=== PATIENT | female | born 1965 | race Caucasian/White ===

== ENCOUNTER 2016-06-10 14:50 | Emergency (ER) | payer MEDICARE ==
[2016-06-10] MEDS ORDERED: HYDROmorphone HCL 1 MG/ML DISP.SYRIN IM ONE (16:02)
[2016-06-10] MEDS ORDERED: ONDANSETRON 4 MG TAB.RAPDIS PO ONE (16:02)
[2016-06-10] MEDS ORDERED: ONDANSETRON 4 MG TAB.RAPDIS ONE (16:03)
[2016-06-10] MEDS ORDERED: HYDROmorphone HCL 1 MG/ML DISP.SYRIN ONE (16:03)
[2016-06-10] MEDS ORDERED: NORMAL SALINE 1,000 ML IV ONE (16:52)
[2016-06-10] MEDS ORDERED: KETOROLAC TROMETHAMINE 30 MG/ML VIAL IV ONE (16:52)
--- NOTE | 2016-06-10 17:01 | ERNOTE ---
ER Female HPI Date of Service: 06/10/16 Stated Complaint: KIDNEY STONE Time Seen by Provider: 06/10/16 16:49 Source: patient Exam Limitations: no limitations Allergies/Adverse Reactions: Allergies Penicillins Allergy (Verified 06/10/16 15:58) Anaphylaxis Home Medications: HOME MEDICATIONS Albuterol Sulfate [Ventolin HFA] 1 puff IH DAILY 06/10/16 [Last Taken Unknown] Citalopram Hydrobromide [Celexa] 20 mg PO DAILY 06/10/16 [Last Taken Unknown] Levofloxacin [Levaquin] 750 mg PO DAILY #10 tab 06/10/16 [Last Taken Unknown] Naproxen [Naprosyn] 500 mg PO BID PRN #60 tab 06/10/16 [Last Taken Unknown] Trazodone HCl [Oleptro ER] 100 mg PO HS 06/10/16 [Last Taken Unknown] metroNIDAZOLE [Flagyl] 500 mg PO QID #40 tab 06/10/16 [Last Taken Unknown] - History of Present Illness Narrative: Pt. comes in with c/o R flank pain for two days. Pt. also states that she has chest pain and SOB that has increased from her baseline recently. Pt. has a hx of emphasema and has been using her inhaler more recently. Pt. has had nausea and vomiting but denies any fevers. Pt. denies any prehospital treatment, dysuria, hematuria, recent injury, alleviating factors or aggravating factors. Review of Systems - Review of Systems Constitutional: Present: weakness, fatigue, malaise. Absent: recent illness, fever, chills EYE: Present: no symptoms reported ENT: Present: no symptoms reported Respiratory: Present: shortness of breath, cough, wheezing Cardiology: Present: chest pain. Absent: palpitations, syncope, edema Gastrointestinal/Abdominal: Present: nausea, vomiting, abdominal pain - RUQ. Absent: diarrhea Genitourinary: Present: pain - R flank. Absent: frequency, dysuria, hematuria, decreased urinary output Musculoskeletal: Present: back pain - R flank. Absent: joint pain Skin: Present: no symptoms reported. Absent: rash, change in color, change in hair/nails Neurological: Present: no symptoms reported. Absent: headache, dizziness/light- headedness, numbness, tingling All Other Systems: All systems neg except as marked - Patient's Past Medical History Patient History - Medical: No pertinent hx Physical Exam - Physical Exam General Appearance: Present: wd/wn, alert, no apparent distress Eye Exam: Normal inspection: bilateral, PERRL: bilateral, EOMI: bilateral Ears, Nose, Throat: Present: normal ENT inspection, hearing grossly normal, normal pharynx Neck: Present: normal inspection, nontender. Absent: lymphadenopathy (R), lymphadenopathy (L) Respiratory: Present: no respiratory distress, no accessory muscle use, chest nontender, rhonchi - throughout L lung Cardiovascular/Chest: Present: regular rate, rhythm, no murmur, normal peripheral pulses Gastrointestinal/Abdominal: Present: normal bowel sounds, nondistended, soft, no organomegaly, tenderness - RUQ Back Exam: Present: normal inspection, normal range of motion, no vertebral tenderness, CVA tenderness (R) Extremity Exam: Present: normal inspection, non-tender, no edema, normal range of motion Neurological Exam: Present: alert, oriented, normal mood/affect, no motor/ sensory deficits, 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 Absent: skin rash ED Progress - Date and Time Seen: Date and Time: 06/10/16 20:27 Given that pt. has calcium oxalate crystals in urine feel that pt. recently passed kidney stone and may also have gastroenteritis and colitis that I will treat and have her follow up with PCP as it could be acute or chronic. 06/10/16 20:31 - Results and Orders Patient's Lab Results:: I have reviewed the patient's lab results. - Vital Signs Patient's Vital Signs:: I have reviewed the patient's vital signs. Vital Signs: Vital Signs 06/10/16 15:55 Temperature 36.7 C Pulse Rate 79 Respiratory 16 Rate Blood Pressure 122/77 O2 Sat by Pulse 95 Oximetry - EKG EKG: NSR EKG read: Interp. by me - X-Ray X-Ray #1 X-Ray: chest Interpretation: Reviewed by me X-ray Comments: no acute - CT/Ultrasound CT/Ultrasound Narrative: RML calcified nodule and terminal ileus bowel wall thickening. - Progress/Reassessment Chief Complaint: Genitourinary Problem Progress:: Improved Departure Clinical Impression: Renal colic on right side, Colitis - Departure Disposition: Home self-care Condition: Good Instructions: Renal Colic, [id number], Colitis Additional Instructions: Please increase fluid intake start probiotic daily and take pain medication as prescribed Prescriptions: Levofloxacin [Levaquin] 750 mg PO DAILY #10 tab Naproxen [Naprosyn] 500 mg PO BID PRN #60 tab PRN Reason: Pain metroNIDAZOLE [Flagyl] 500 mg PO QID #40 tab
[2016-06-10 17:12] LABS: Hemoglobin 15.4 gm/dL (12.5-16.0); Mean Cell Volume 84.3 fl (78-100); Mean Corpuscular Hemoglobin 28.8 pg (27-31); Mean Corpuscular Hgb Conc 34.2 g/dl (32-36); Neutrophil # 7.1 K/mm3 (1.3-6.0); Neutrophil % 64.7 % (42-75.0); Platelet Count 219 K/mm3 (150-450); Red Blood Count 5.34 M/mm3 (4.2-5.4); Red Cell Distribution Width 13.4 % (11.5-14.0); White Blood Count 10.9 K/mm3 (4.0-10.5)
[2016-06-10 17:35] LABS: Troponin I Less than 0.017 ng/ml (0.00-0.10)
[2016-06-10 17:36] LABS: ALT 19 U/L (19-67); AST 10 U/L (0-48); Albumin * 3.9 gm/dl (3.4-5.0); Alkaline Phosphatase * 73 U/L (50-170); Anion Gap 11.6 mmol/L (6.8-13.8); BNP * 40 pg/mL (5-150); BUN/Creatinine Ratio 23.4 (9.0-21.6); Bilirubin, Total 0.2 mg/dL (0.0-1.1); Blood Urea Nitrogen 18 mg/dL (3-23); Calcium * 9.2 mg/dL (7.9-10.9); Carbon Dioxide 30.1 mmol/L (24-32.6); Chloride 101 mmol/L (97-106); Glucose * 91 mg/dL (70-110); Potassium 4.7 mmol/L (3.4-4.6); Sodium 138 mmol/L (132-142); Total Protein 7.1 gm/dL (6.2-8.2)
[2016-06-10] MEDS ORDERED: KETOROLAC TROMETHAMINE 30 MG/ML VIAL ONE (17:40)
[2016-06-10 17:41] LABS: Urine Appearance Clear; Urine Bacteria None Seen; Urine Bilirubin Negative (NEGATIVE); Urine Blood Negative /ul (NEGATIVE); Urine Color Yellow; Urine Ketone 5 mg/dL (NEGATIVE); Urine Mucus Many - 3+; Urine Nitrite Negative (NEGATIVE); Urine Protein Negative (NEGATIVE); Urine RBC None Seen /hpf (0-5); Urine Specific Gravity >=1.030 SP.GR. (1.005-1.010); Urine Urobilinogen Normal (NORMAL); Urine WBC None Seen /hpf (0-5)
[2016-06-10 21:27] VITALS: BP 115/77
== END 2016-06-10 20:50 | disposition home or self-care (01) ==
LOC: ER 14:50
DX: N23 Unspecified renal colic (principal); K52.9 Noninfective gastroenteritis and colitis, unspecified